=== PATIENT | female | born 1945 | race Caucasian/White ===

== ENCOUNTER → 2018-09-08 | Outpatient (CLI) | payer MEDICARE, OTHER ==
--- NOTE | 2018-09-08 13:23 | Diagnostic Imaging Report ---
INDICATION: Screening for osteoporosis. COMPARISON: 10/06/2014. FINDINGS: This study was compared to the prior exam of 10/06/2014. The bone mineral density of the hips and spine was measured. The T-score for the spine is -1.6. On the prior exam, the T score was -2.2. The total T-score for the left hip is -0.6 and for the right hip -1.1. On the prior exam, the respective scores were -0.7 and -1.1. The femoral neck T-scores were not obtained on the prior study. On this study, the T-score for the left femoral neck is -2.1 and for the right femoral neck -2.3. AP Spine L1-L4: [BMD (g/cm2): 1.013] [T-Score: -1.6] [Z-Score: -0.1] [BMD Previous: 0.940] [BMD % Change: 7.8] LT Hip Neck: [BMD (g/cm2): 0.749] [T-Score: -2.1] [Z-Score: -0.4] LT Hip Total: [BMD (g/cm2):0.936] [T-Score:-0.6] [Z-Score: 0.9] [BMD Previous: 0.915] [BMD % Change: 2.3] RT Hip Neck: [BMD (g/cm2):0.714] [T-Score:-2.3] [Z-Score:-0.7] RT Hip Total: [BMD (g/cm2):0.867] [T-score:-1.1] [Z-Score:0.3] [BMD Previous:0.866] [BMD % Change:0.1] *Indicates significant change from prior examination based on 95% confidence level. World Health Organization criteria for BMD interpretation classify patients as Normal (T-score at or above -1.0), Osteopenic (T-score between -1.0 and -2.5) or Osteoporotic (T-score at or below -2.5). LIMITATIONS AND MODIFICATION: None. FRACTURE RISK (FRAX SCORE): The ten year probability of (%): Major Osteoporotic Fracture: [22.3] Hip Fracture: [6.1] IMPRESSION: 1. The bone mineral density of the spine has increased since the prior exam. The T-score still indicates osteopenia, however. 2. The bone mineral density of the hips has not changed significantly. The total T-score for the left hip is within normal limits while there is mild osteopenia of the right hip. The T-score for each femoral neck, however, does indicate severe osteopenia. 3. See below National Osteoporosis Foundation guidelines on when to potentially initiate pharmacologic therapy. Based on the National Osteoporosis Foundation Guidelines, pharmacologic treatment should be initiated in any of the following, unless clinical conditions suggest otherwise: * Any patient with prior fragility fracture of the hip or vertebrae. A spine fracture indicates 5X risk for subsequent spine fracture and 2X risk for subsequent hip fracture. * Osteoporosis (T-score <-2.5). * Postmenopausal women and men age 50 and older with low bone mass/osteopenia (T-score between -1.0 and -2.5) by DXA and 10-year major osteoporotic fracture greater than 20% or a 10-year probability of hip fracture greater than 3%. These fracture risks are supplied above in the FRAX score, if applicable. * Clinician judgement and/or patient preferences may indicate treatment for people with 10-year fracture probabilities above or below these levels. Dictated by: Dictated on workstation # [id number]
== END ==
LOC: RAD 09:56
PROVIDERS: ATTEND Internal Medicine
DX: Z13.820 Encounter for screening for osteoporosis (principal); M85.89 Other specified disorders of bone density and structure, multiple sites; M81.0 Age-related osteoporosis without current pathological fracture
CPT/HCPCS: 77080

== ENCOUNTER → 2020-10-30 | Outpatient (CLI) | payer MEDICARE, OTHER ==
[~2020-10-30] VITALS: Ht 152 cm; Wt 76.0 kg
[~2020-10-30] MED LIST: CATHETER FLUSH 10 ML SYR IV PRN; REGADENOSON 0.4 MG/5 ML SYR (LEXISCAN) IV ONE
[2020-10-30 08:08] VITALS: BP 144/54
--- NOTE | 2020-11-01 01:51 | STRESS TEST ---
DATE OF SERVICE: 10/30/2020 RESTING AND POST REGADENOSON TECHNETIUM-99M TETROFOSMIN SPECT CT IMAGING ORDERING PHYSICIAN: Dr. Caban. PRIMARY PHYSICIAN: Dr. Caban. CLINICAL DIAGNOSIS: Fatigue. Baseline images were carried out after injection of 10.05 mCi of technetium-99m Tetrofosmin. This was followed by 0.4 mg regadenoson, which was followed by 31.7 mCi of technetium-99m Tetrofosmin for stress imaging. The electrocardiographic portion of the study is reported separately by Dr. Caban under whose supervision the study was carried out. Review of images at rest and following stress does not indicate any distinct perfusion defects consistent with significant myocardial ischemia or infarction. Gated images show normal global left ventricular systolic function with normal regional wall motion. Left ventricular ejection fraction is calculated to be 75%. Left ventricular cavity size appears to be within normal limits. Left ventricular end diastolic volume is 34 mL. CONCLUSIONS: 1. No evidence of significant myocardial ischemia or infarction on this study. 2. Normal regional wall motion. 3. Normal to hyperdynamic left ventricular systolic function with a calculated ejection fraction of 75%. Job ID: [id number] DocumentID: [id number] Dictated Date: 10/31/2020 20:50:19 Rotary Adjuster Date: 11/01/2020 01:49:49 Dictated By: EVA WALKER MD, MA, FACP, FACC,
== END ==
LOC: CARD 07:00
PROVIDERS: ATTEND Internal Medicine
DX: R53.83 Other fatigue (principal)
CPT/HCPCS: 78452; 93017; A9502

== ENCOUNTER 2020-12-12 12:28 | Outpatient (CLI) | payer MEDICARE, OTHER ==
[~2020-12-12] VITALS: Ht 152 cm; Wt 76.0 kg
[2020-12-12] MEDS ORDERED: ZOLEDRONATE (NON-FORMULARY) 100 ML IV ONE (12:45)
[2020-12-12 13:22] VITALS: BP 155/87
== END 2020-12-12 14:05 ==
LOC: SDC 12:28
PROVIDERS: ATTEND Internal Medicine
DX: M81.0 Age-related osteoporosis without current pathological fracture (principal)